=== PATIENT | male | born 1960 | race Caucasian/White ===

== ENCOUNTER 2020-02-26 09:56 | Day surgery (SDC) | payer OTHER, SELFPAY ==
[2020-02-24 13:25] VITALS: BMI 23.7
--- NOTE | 2020-02-26 09:13 | P.HP_ITS ---
Same Day Surgery H&P Indication for Procedure/HPI DATE OF PROCEDURE: February 26, 2020 CHIEF COMPLAINT/INDICATIONFOR SURGICAL PROCEDURE: Family history of colon cancer PREOP DIAGNOSIS: Family history of colon cancer PLANNED PROCEDRUE: Operation Date: 02/26/20 11:15 Proposed Procedures p Colonoscopy G0105 Z80.0(Not Applicable) - Franco Toussaint MD Medications/Allergies* Allergies/Adverse Reactions Allergy/AdvReac Type Severity Reaction Status Date / Time No Known Allergies Allergy Verified 11/13/19 16:18 Pertinent History/Comorbid Conditions* Medical History (Updated 02/08/20 @ 14:17 by Franco Toussaint MD) Hemorrhoids Surgical History (Updated 11/13/19 @ 16:19 by Anselmo Martinez MD) History of colonoscopy (~2009) NORMAL Family History (Updated 02/08/20 @ 13:25 by Daxa Lugo LPN) Father Cancer Father of colon cancer at age 63 Denies family history of Anesthesia complication Bleeding disorder Social History Smoking and tobacco status: never smoked Second hand smoke exposure: No Alcohol intake: current Alcohol intake frequency: holidays/special occasions only Alcohol type: beer Desire information about alcohol rehabilitation?: No Desire information about substance/drug rehabilitation?: No Adopted: No Caregiver/support person: No Lives independently: Yes Household members: friend(s) Housing: House Marital status: Legally Highest education level completed: High School Graduate service: Yes Current occupational status: retired Current occupational exposures/hazards: No Pets and animals: No History of recent travel: No Sexually active: No Current gender identity: Male and Decline to Answer Robyn/Pentec[employer]al: [employer] Special robyn needs: No Agree to transfusion: No Financial difficulty paying for basics: Decline to Answer Pertinent Exam Findings alert, oriented x 3, clear to auscultation bilaterally, regular rate & rhythm, operative site marked and procedure specific exam findings Recommendations Surgery/Procedure today Coding Level of Care Code Acute Press Officer for Cortney Malik
[2020-02-26] MEDS: sodium chloride 0.9% 1,000 ML 30 ML IV (10:15)
[2020-02-26 10:25] VITALS: BP 164/95; PULSE 79; RESP 18; TEMP 36.9; O2SAT 98
== END 2020-02-26 12:52 | disposition home or self-care (01) ==
PROVIDERS: PCP Nurse Practitioner; Visit Provider Internal Medicine
PROC: 0DJD8ZZ Inspection of Lower Intestinal Tract, Via Natural or Artificial Opening Endoscopic (ICD-10-PCS; CPT 45378; principal; 2020-02-26 11:10)
DX: Z12.11 Encounter for screening for malignant neoplasm of colon (principal); Z80.0 Family history of malignant neoplasm of digestive organs
CPT/HCPCS: 12345; 45378; J7030

== ENCOUNTER 2021-03-02 20:00 | Outpatient (CLI) | payer OTHER, SELFPAY | END 2021-03-02 20:01 | disposition home or self-care (01) | LOC: SLEEP 03-03 05:42 | PROVIDERS: PCP Nurse Practitioner; Visit Provider Family Medicine | DX: G47.33 Obstructive sleep apnea (adult) (pediatric) (principal) | CPT/HCPCS: 95810 ==

== ENCOUNTER 2021-12-14 08:49 | Outpatient (CLI) | payer OTHER, SELFPAY ==
--- NOTE | 2021-12-14 09:40 | FL_ITS ---
WS: [id number] Barium swallow and esophagram, 12/14/2021 Clinical Data: DIFFICULTY SWALLOWING Comparison: None. Fluoroscopy time: 0.9 minutes. Findings: The patient swallowed the thick and thin barium, and it flowed through the hypopharynx without hesita tion. No stricture, mass, polyp or erosion was seen. The barium entered the esophagus and there was normal motility throughout. No hiatal hernia, reflux, stricture, polyp, mass, erosion or ulcer was noted. . FL/FL barium swallow [id number] Impression: Normal esophagram.
== END 2021-12-14 08:50 | disposition home or self-care (01) ==
LOC: RAD 08:51
PROVIDERS: PCP Family Medicine; Visit Provider Family Medicine
DX: R13.10 Dysphagia, unspecified (principal)
CPT/HCPCS: 74220